=== PATIENT | female | born 1985 | race Caucasian/White ===

== ENCOUNTER 2016-07-04 11:54 | Emergency (ER) | payer OTHER ==
--- OUTSIDE RECORDS SUMMARY | 2016-07-04 12:24 | XMS REPORT | Continuity of Care Document ---
:1985 Author Organization [facility] ([facility]) Address [address] [place] [address] Phone [phone] Care Team Providers Name Role Phone Weston Whatley Primary Care Provider [phone] Source Comments This disclosure is being made pursuant to the Care Everywhere program, applicable federal and state laws, and may not contain all informaitonavailable regarding this patient.[facility] ([facility]) Active Allergies and Adverse Reactions No Active Allergies Current Medications Not on file Active Problems Problem Noted Date Closed fracture of cervical vertebra, unspecified level without mention of spinal cord injury Social History Tobacco Use Types Packs/Day Years Used Date Never Assessed Last Filed Vital Signs Vital Sign Reading Time Taken Blood Pressure 113/55 05/20/2003 8:53 AM 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 Pulse 77 05/20/2003 8:53 AM [employer]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 Temperature 35.7 C (96.26 F) 05/20/2003 8:53 AM [employer] T[employer]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 Respiratory Rate 16 05/20/2003 8:53 AM [employer]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 Height 1.602 m (5' 3.07") 05/20/2003 8:53 AM [employer] T[employer]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 Weight 73.496 kg (162 lb 0.5 oz) 05/20/2003 8:53 AM [employer] T[employer]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 Body Mass Index 28.64 05/20/2003 8:53 AM [employer]NAL [employer]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 Oxygen Saturation - - Plan of Care Health Maintenance Due Date Last Done Comments Hepatitis B Vaccine (1 of 3 - Primary Series) 1985 Tdap Vaccine 1996 Lipid Disorder Screening 11/18/2003 MMR Vaccine 11/18/2003 Td Vaccine 11/18/2003 Varicella Vaccine (1 of 2 - Adult - No Evidence of 11/18/2003 Immunity) Cervical Cancer Screening 11/18/2015 Influenza Vaccine: Seasonal (#1) 11/29/2015 Results from Last 3 Months Not on file
[2016-07-04 12:43] LABS: Hematocrit 33.5 % (37.0-47.0); Hemoglobin 10.8 gm/dL (12.5-16.0); Mean Cell Volume 80.5 fl (78-100); Mean Corpuscular Hgb Conc 32.2 g/dl (32-36); Mean Platelet Volume 8.4 fl (6.0-9.5); Neutrophil # 5.3 K/mm3 (1.3-6.0); Neutrophil % 64.9 % (42-75.0); Platelet Count 263 K/mm3 (150-450); Red Blood Count 4.16 M/mm3 (4.2-5.4); Red Cell Distribution Width 14.2 % (11.5-14.0); White Blood Count 8.2 K/mm3 (4.0-10.5)
[2016-07-04 12:51] LABS: Albumin * 3.8 gm/dl (3.4-5.0); Anion Gap 15.5 mmol/L (6.8-13.8); BUN/Creatinine Ratio 20.4 (9.0-21.6); Bilirubin, Total 0.3 mg/dL (0.0-1.1); Ca. Corrected For Albumin 8.1 mg/dL (8.4-10.2); Calcium * 8.3 mg/dL (7.9-10.9); Carbon Dioxide 25.3 mmol/L (24-32.6); Potassium 3.8 mmol/L (3.4-4.6); Total Protein 7.4 gm/dL (6.2-8.2)
--- NOTE | 2016-07-04 13:05 | ERNOTE ---
Medical Problem HPI - Narrative Date of Service: 07/04/16 - General Chief Complaint: General Assessment Time Seen by Provider: 07/04/16 12:11 Source: patient - Immun/Allergies/Home Medications Immunizations: IMMUNIZATION HX Immunizations Up to Date Yes History of Influenza Vaccine Yes Hx Pneumococcal Vaccination No Allergies/Adverse Reactions: Allergies No Known Allergies Allergy (Verified 07/04/16 12:11) Home Medications: HOME MEDICATIONS ALPRAZolam [Xanax] 0.25 mg PO TID PRN 09/30/15 [Last Taken Unknown] Clindamycin HCl [Cleocin HCl] 300 mg PO TID #30 capsule 07/04/16 [Last Taken Unknown] - History of Present History Narrative: Pt complains of right sided facial swelling that now includes the area below the right orbit. Onset has been over the past several days and appears to be getting worse since tried to "pop" the zit appearing lesion. Timing: constant Severity: moderate Review of Systems - Review of Systems Constitutional: Present: See HPI EYE: Present: no symptoms reported ENT: Present: See HPI Respiratory: Present: no symptoms reported Cardiology: Present: no symptoms reported Gastrointestinal/Abdominal: Present: no symptoms reported Genitourinary: Present: no symptoms reported Musculoskeletal: Present: no symptoms reported Skin: Present: no symptoms reported Neurological: Present: no symptoms reported Endocrine: Present: no symptoms reported Hematologic/Lymphatic: Present: no symptoms reported Psych: Present: no symptoms reported - Patient's Past Medical History Patient History - Medical: No pertinent hx Patient History - Cardiac/Respiratory: No pertinent hx Patient History - Cancer: No Hx of Cancer Patient History - Surgical Procedures: Cholecystectomy, Other Patient History - Other: None LMP (females 10-50): now LMP (Calendar): 09/05/15 - Social History Living Situations: home Abuse History: No History of abuse Psych History: No pertinent hx Smoking Status: Never smoker Alcohol Use: occasionally Drug Use: none - Immunizations Immunizations Up to Date: Yes Hx Pneumococcal Vaccination: No History of Influenza Vaccine: Yes Physical Exam - Physical Exam General Appearance: Present: wd/wn, alert, mild distress Eye Exam: Normal inspection: bilateral, PERRL: bilateral Ears, Nose, Throat: Present: normal pharynx, other - swelling around the right facial area covering the zygoma area and up under the right eye. Fluctuant appearing area in the right pre-auricular region. Neck: Present: normal inspection, nontender Respiratory: Present: no respiratory distress, normal breath sounds, no accessory muscle use, chest nontender, lungs clear Cardiovascular/Chest: Present: regular rate, rhythm, no murmur, normal peripheral pulses Gastrointestinal/Abdominal: Present: normal bowel sounds, nontender, nondistended, soft, no organomegaly Rectal Exam: Present: deferred Back Exam: Present: normal inspection, normal range of motion Extremity Exam: Present: normal inspection, non-tender, no edema, normal range of motion Neurological Exam: Present: alert, oriented, normal mood/affect Skin Exam: Present: normal color, warm/dry Lymphatic Exam: Present: no adenopathy ED Progress - Results and Orders Patient's Lab Results:: I have reviewed the patient's lab results. - Vital Signs Patient's Vital Signs:: I have reviewed the patient's vital signs. Vital Signs: Vital Signs 07/04/16 12:05 Temperature 37.0 C Pulse Rate 77 Respiratory 16 Rate Blood Pressure 132/93 O2 Sat by Pulse 100 Oximetry - CT/Ultrasound CT/Ultrasound Narrative: ct reviewed - Progress/Reassessment Chief Complaint: General Assessment Progress:: Unchanged - Transfer of Care Expected Disposition: Discharge Procedures Right Face Anesthesia: Other - ethyl chloride Blade Size: 15 Findings and Actions: purulent drainage moderate Comments:: Patient had a fair amount of purulent material coming out of the abscess on the right preauricular area. She states she has been having these since she was a teenager however normally she is able to pop them and extricate all the purulent material this time only very small amount came out and the right side of the face became significantly more swollen. I suspect this is a sebaceous cyst and we put packing into this area to try to get it to heal from the inside out and hopefully not recur in the future. Plan - Plan Plan: Patient does have a small area of fluctuance in the right preauricular area we will make an I&D with cultures of that area will also give her 900 mg of clindamycin IV and started on oral clindamycin awaiting the culture results from the preauricular abscess. Departure - Departure Clinical Impression: Cellulitis and abscess of face Clinical Impression: (Ruled Out): Facial abscess Disposition: Home self-care Condition: Good Instructions: Abscess, [id number], Cellulitis, Adult, [id number] Referrals: Martine Juan FNP [Primary Care Provider] - Prescriptions: Clindamycin HCl [Cleocin HCl] 300 mg PO TID #30 capsule
[2016-07-04] MEDS: CLINDAMYCIN PHOSPHATE 600 MG in DEXTROSE 5 % IN WATER 100 ML IV ONE ×2 (13:54)
[2016-07-04 13:58] VITALS: BP 130/89
== END 2016-07-04 13:52 | disposition home or self-care (01) ==
LOC: ER 11:54
PROC: 0H91XZZ Drainage of Face Skin, External Approach (ICD-10-PCS; principal; 2016-07-04)
DX: L03.213 Periorbital cellulitis (principal); L02.01 Cutaneous abscess of face